=== PATIENT | female | born 1980 | race Caucasian/White ===

== ENCOUNTER → 2018-11-17 10:01 | Outpatient (CLI) | payer BC, SELFPAY ==
[2018-11-17 09:37] VITALS: BMI 22.1
[2018-11-17 10:19] LABS: Absolute Lymphocyte Count 1.68 X10^3/ul (0.83-4.51); Absolute Neutrophil Count 6.2 X10^3/uL (2.0-7.7); Basophil# 0.01 X10^3/uL; Basophil% 0.1 % (0-1); Eosinophil# 0.11 X10^3/uL; Eosinophils% 1.3 % (0-5); Hematocrit 37.1 % (37-47); Hemoglobin 12.8 g/dl (12.0-15.0); Lymphocyte # 1.68 X10^3/ul (4.0); Lymphocyte % 20.1 % (19-41); Mean Corp Hgb Conc 34.5 g/gl (32-36); Mean Corpuscular Hgb 31.2 pg (27.0-32.0); Mean Corpuscular Volume 90.5 fL (81-99); Mean Platelet Vol. 8.1 fl (6.2-12.0); Monocyte# 0.33 X10^3/uL; Monocyte% 3.9 % (0-10); Neutrophil # 6.22 X10^3/uL (2.7-7.7); Neutrophil % 74.4 % (47-70); Platelet Count 202 K/mm3 (150-450); RBC Distribution Width SD 42.1 fl (35.1-43.9); White Blood Count 8.4 K/mm3 (4.4-11.0)
[2018-11-17 10:22] LABS: POSITIVE COUNT NO; POSITIVE DIFFERENTIAL NO; POSITIVE MORPHOLOGY NO
[2018-11-17 11:48] LABS: HIV - WCH Non-Reactive (Nonreactive); Rubella IgG 63.4 IU/mL
[2018-11-17 17:27] LABS: Chlamydia Trachomatis by PCR Negative (Negative); Neisserai gonorrhoeae by PCR Negative (Negative); Probe Check PASS; Sample Adequacy Control PASS; Specimen Processing Control PASS
[2018-11-18 11:20] LABS: HEPATITIS B SURFACE AG Negative (Negative)
[2018-11-20 02:31] LABS: Rapid Plasmin Reagin (RPR) NONREACTIVE (NONREACTIVE)
== END ==
PROVIDERS: Family Provider Family Medicine; PCP Family Medicine; Referring Provider Obstetrics & Gynecology; Visit Provider Obstetrics & Gynecology
DX: O09.90 Supervision of high risk pregnancy, unspecified, unspecified trimester (principal); Z3A.00 Weeks of gestation of pregnancy not specified
CPT/HCPCS: 36415; 85025; 86592; 86703; 86762; 86850; 86900; 87086; 87088; 87340; 87491; 87591

== ENCOUNTER → 2019-03-18 10:34 | Outpatient (CLI) | payer BC, SELFPAY ==
[2019-03-18 10:16] VITALS: BMI 22.1
[2019-03-18 11:28] LABS: Glucose Challenge Gest 1H 50g 140 mg/dL (70-140)
[2019-03-18 11:34] LABS: Absolute Lymphocyte Count 1.42 X10^3/uL (0.83-4.51); Absolute Neutrophil Count 7.9 X10^3/uL (2.0-7.7); Basophil# 0.03 X10^3/uL; Basophil% 0.3 % (0-1); Eosinophil# 0.28 X10^3/uL; Eosinophils% 2.7 % (0-5); Hemoglobin 10.9 g/dL (12.0-15.0); Lymphocyte # 1.42 X10^3/ul (4.0); Lymphocyte % 13.6 % (19-41); Mean Corpuscular Hgb 31.2 pg (27.0-32.0); Mean Corpuscular Volume 94.6 fL (81-99); Mean Platelet Vol. 8.4 fl (6.2-12.0); Monocyte# 0.61 X10^3/uL; Monocyte% 5.8 % (0-10); NRBC Flagged by Analyzer 0 % (0-5); Neutrophil # 7.94 X10^3/uL (2.7-7.7); Neutrophil % 76.2 % (47-70); Platelet Count 146 K/mm3 (150-450); RBC Distribution Width CV 13.2 % (11.6-14.6); RBC Distribution Width SD 45.4 fl (35.1-43.9); Red Blood Count 3.49 M/mm3 (4.2-5.4); White Blood Count 10.4 K/mm3 (4.4-11.0)
== END ==
PROVIDERS: Family Provider Family Medicine; PCP Family Medicine; Referring Provider Nurse Practitioner Women's Health; Visit Provider Nurse Practitioner Women's Health
DX: O09.90 Supervision of high risk pregnancy, unspecified, unspecified trimester (principal); Z3A.00 Weeks of gestation of pregnancy not specified
CPT/HCPCS: 36415; 82950; 85025

== ENCOUNTER → 2019-03-25 06:49 | Outpatient (CLI) | payer BC, SELFPAY ==
[2019-03-18 10:16] VITALS: BMI 22.1
[2019-03-25 07:29] LABS: Glucose GTT-Gestation. Fasting 84 mg/dL (<105)
[2019-03-25 08:35] LABS: Glucose GTT-Gestational 1 Hr 201 mg/dL (<190)
[2019-03-25 09:52] LABS: Glucose GTT-Gestational 2 Hr 154 mg/dL (<165)
[2019-03-25 11:02] LABS: Glucose GTT-Gestational 3 Hr 102 L (<145)
== END ==
PROVIDERS: Family Provider Family Medicine; PCP Family Medicine; Referring Provider Nurse Practitioner Women's Health; Visit Provider Nurse Practitioner Women's Health
DX: O99.810 Abnormal glucose complicating pregnancy (principal); Z3A.00 Weeks of gestation of pregnancy not specified
CPT/HCPCS: 36415; 82951; 82952

== ENCOUNTER → 2019-04-28 11:01 | Outpatient (CLI) | payer BC, SELFPAY ==
[2019-04-19 08:04] VITALS: BMI 22.1
[2019-04-28 09:42] VITALS: BMI 22.1
--- NOTE | 2019-04-28 11:02 | US_ITS ---
STUDY: SECOND AND THIRD TRIMESTER OBSTETRICAL ULTRASOUND REASON FOR EXAM: Female, 38 years old LMP: TECHNIQUE: TECHNICAL QUALITY: Adequate. PRIOR ULTRASOUND: None. FINDINGS: There is a single intrauterine fetus. The fetus is in transverse lie with the head to the right. There is demonstrated cardiac activity with a heart rate of 131 bpm. There is a normal amniotic fluid volume. The largest amniotic fluid pocket measures cm. The amniotic fluid index (REBECCA) is 10.6 cm. The placenta is bilobed anterior and fundal in location There are Grade 0 placental changes. The cervix measures 6 cm in length. The bilateral adnexal regions are normal. BIOMETRY: BPD: 8.4 cm: 33weeks, 4 days HC: 15.9 cm: 34 weeks, 3 days AC: 30.7 cm: 34 weeks, 4 days FL: 6.2 cm: 32 weeks, 1 days CI: 80% FL/BPD: 74% FL/HC: FL/AC: 20% HC/AC: 1.01 age by current US: 33 weeks, 4 days. GARY by current US: 06/13/2019. Estimated weight: 2288 grams, +/- 339 grams, 67 %. age by prior US: weeks, days. GARY by prior US: . Age by LMP: 32 weeks, 6 days. GARY by LMP: 06/17/2019. ANATOMY: Gender: Cranium: Normal lateral ventricles. Normal choroid plexus. Normal cerebellum. Normal cisterna magna. Normal face, nose and lips. Chest: Normal 4-chamber heart. Abdomen/Pelvis: Normal diaphragm. Normal stomach. Normal abdominal wall. Normal cord insertion. Normal 3 vessel cord. Normal kidneys. Normal bladder. Spine: Normal cervical spine. Normal thoracic spine. Normal lumbar spine. Normal sacrum. Extremities: Normal bilateral upper extremities. Normal bilateral lower extremities. US/OB Limited With Biometrics IMPRESSION: Within normal limits intrauterine live . Corresponds to 33 weeks and 3 days. Electronically Signed: Bora Sanchez, at 8:51 EST Tel , Service support ,
== END ==
PROVIDERS: Family Provider Family Medicine; PCP Family Medicine; Referring Provider Obstetrics & Gynecology; Visit Provider Obstetrics & Gynecology
DX: O24.419 Gestational diabetes mellitus in pregnancy, unspecified control (principal); Z3A.33 33 weeks gestation of pregnancy
CPT/HCPCS: 76816

== ENCOUNTER → 2019-05-20 13:19 | Outpatient (CLI) | payer BC, SELFPAY ==
[2019-05-20 08:11] VITALS: BMI 29.0
== END ==
PROVIDERS: Family Provider Family Medicine; PCP Family Medicine; Referring Provider Obstetrics & Gynecology; Visit Provider Obstetrics & Gynecology
DX: Z36.85 Encounter for antenatal screening for Streptococcus B (principal)
CPT/HCPCS: 87077; 87081; 87186

== ENCOUNTER → 2019-05-28 14:02 | Outpatient (CLI) | payer BC, SELFPAY ==
[2019-05-20 08:11] VITALS: BMI 29.0
[2019-05-28 10:47] VITALS: BMI 29.0
--- NOTE | 2019-05-28 14:02 | US_ITS ---
STUDY: SECOND AND THIRD TRIMESTER OBSTETRICAL ULTRASOUND REASON FOR EXAM: Female, 38 years old gestational diabetes. growth. LMP: September 10, 2018. TECHNIQUE: Transabdominal TECHNICAL QUALITY: Adequate. PRIOR ULTRASOUND: None. FINDINGS: There is a single intrauterine fetus. The fetus is in a cephalic presentation. There is demonstrated cardiac activity with a heart rate of 144 bpm. There is a normal amniotic fluid volume. The largest amniotic fluid pocket measures 4.44 cm. The amniotic fluid index (REBECCA) is 14.13 cm. The placenta is anterior and fundal and lower lung There are Grade 2 placental changes. The cervix measures 5.65 cm in length. The adnexal regions are not visualized. BIOMETRY: BPD: 9.07 cm: 36 weeks, 6 days HC: 32.6 cm: 37 weeks, 0 days AC: 33.4 cm: 37 weeks, 5 days FL: 7.25 cm: 37 weeks, 1 days CI: FL/BPD: 80 FL/HC: FL/AC: 21 HC/AC: 0.97 age by current US: 37 weeks, 2 days. GARY by current US: June 16, 2019. Estimated weight: 3183 grams, +/- 465 grams, 62 %. age by prior US: 37 weeks, 5 days. GARY by prior US: June 13, 2019. Age by LMP: 37 weeks, 1 days. GARY by LMP: June 17, 2019. US/OB Limited With Biometrics IMPRESSION: 1. Live single intrauterine of 37 weeks, 2 days. GARY is June 16, 2019. There is adequate interval growth since prior ultrasound. 2. EFW of 3183 g. 3. REBECCA of 14.33 cm. 4. Anterior and fundal grade 2 placenta. 5. Vertex presentation. Electronically Signed: Rasta Hou DO at 16:06 EST Tel [phone], Service support ,
--- NOTE | 2019-05-28 14:02 | US_ITS ---
STUDY: OBSTETRICAL ULTRASOUND - BIOPHYSICAL PROFILE REASON FOR EXAM: Female, 38 years old GDM- well being LMP: 09/10/2018. PRIOR ULTRASOUND: None. TECHNIQUE: Transabdominal TECHNICAL QUALITY: Adequate. FINDINGS: There is a single intrauterine fetus. The fetus is in a cephalic presentation. There is demonstrated cardiac activity with a heart rate of 129 bpm. There is a normal amniotic fluid volume. The largest amniotic fluid pocket measures 5.03 cm. The amniotic fluid index (REBECCA) is 14.2 cm. The placenta is There are Grade 2 placental changes. Age by LMP: 37 weeks, 1 days. GARY by LMP: 06/17/2019. age by prior US: 37 weeks, 5 days. GARY by prior US: 06/13/2019. BIOPHYSICAL PROFILE: Breathing Movements (FBM): 2 Gross Body Movements (GBM): 2 Tone (FT): 2 Amniotic Fluid Volume (AFV): 2 TOTAL SCORE: / US/Biophysical Profile IMPRESSION: Normal biophysical profile of 01/07. Electronically Signed: Edilia Rodrigues MD at 4:00 EST , Service support ,
== END ==
PROVIDERS: Family Provider Family Medicine; PCP Family Medicine; Referring Provider Obstetrics & Gynecology; Visit Provider Obstetrics & Gynecology
DX: O24.419 Gestational diabetes mellitus in pregnancy, unspecified control (principal); O09.90 Supervision of high risk pregnancy, unspecified, unspecified trimester; Z3A.00 Weeks of gestation of pregnancy not specified
CPT/HCPCS: 76816; 76818

== ENCOUNTER 2019-06-09 18:30 | Outpatient (CLI) | payer OTHER, SELFPAY ==
[2019-06-04 08:58] VITALS: BMI 29.0
[2019-06-09 19:02] VITALS: BMI 30.4
--- NOTE | 2019-06-10 09:42 | OB.TRI.PN ---
Progress Notes Date of Service: 06/09/19 Progress Note: FHT: 140 Moderate variability reactive no decelerations category I tracing Candelaria Arenas: no regular Contractions pelvic pressure - Problem List (1) Pelvic pressure in Status: Acute Multi Select Codes - Urinary/Genital Urinary/Genital CPT Codes: 23709-83 non-stress test Interp
== END 2019-06-09 19:10 | disposition home or self-care (01) ==
LOC: WPOUT 18:44 → WP 18:45
PROVIDERS: Family Provider Family Medicine; PCP Family Medicine; Referring Provider Obstetrics & Gynecology; Visit Provider Obstetrics & Gynecology
DX: O26.899 Other specified pregnancy related conditions, unspecified trimester (principal); R10.2 Pelvic and perineal pain; Z3A.00 Weeks of gestation of pregnancy not specified
CPT/HCPCS: 59025; 59050; 99218; G0378

== ENCOUNTER 2019-06-17 07:10 | Inpatient (IN) | payer OTHER, SELFPAY ==
[2019-06-11 08:18] VITALS: BMI 30.4
[2019-06-17 07:24] VITALS: BMI 30.2
[2019-06-17] MEDS: Lactated Ringers 1,000 ML 50 ML IV (07:30)
[2019-06-17 07:45] LABS: Bedside Glucose 78 mg/dL (70-110)
[2019-06-17 07:48] LABS: Absolute Lymphocyte Count 1.58 X10^3/uL (0.83-4.51); Absolute Neutrophil Count 4.9 X10^3/uL (2.0-7.7); Basophil# 0.02 X10^3/uL; Basophil% 0.3 % (0-1); Eosinophils% 2.8 % (0-5); Hematocrit 33.7 % (37-47); Hemoglobin 11.4 g/dL (12.0-15.0); Lymphocyte # 1.58 X10^3/ul (4.0); Lymphocyte % 21.7 % (19-41); Mean Corp Hgb Conc 33.8 g/dL (32-36); Mean Corpuscular Hgb 30.6 pg (27.0-32.0); Mean Corpuscular Volume 90.6 fL (81-99); Mean Platelet Vol. 9.3 fl (6.2-12.0); Monocyte# 0.55 X10^3/uL; Monocyte% 7.6 % (0-10); NRBC Flagged by Analyzer 0 % (0-5); Neutrophil # 4.87 X10^3/uL (2.7-7.7); Neutrophil % 66.9 % (47-70); Platelet Count 123 K/mm3 (150-450); RBC Distribution Width CV 14.1 % (11.6-14.6); RBC Distribution Width SD 46.5 fl (35.1-43.9); Red Blood Count 3.72 M/mm3 (4.2-5.4); White Blood Count 7.3 K/mm3 (4.4-11.0)
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
[2019-06-17] MEDS: Oxytocin 30 units/NS 500 ml 30 UNITS/500 ML IV.SOLN IV (08:49)
[2019-06-17 08:56] LABS: Bedside Glucose 75 mg/dL (70-110)
--- NOTE | 2019-06-17 10:16 | PCM.RX.CS ---
Consult Pharmacy has been consulted to manage selected antiobiotic: Vancomycin Type of Consult: New start Suspected Infection: Other Prior Doses of Antibiotics Received/Current Regimen: ZERO Labs: TROUGH ORDERED PRIOR TO 4TH DOSE IF PATIENT STILL RECEIVING VANCO Weight used for dosin kg Estimated Creatinine Clearance: NA Goal Trough: Other Pharmacy Plan for Drug Dosing: Pharmacy Service will continue to monitor and adjust dosing as required. 20MG/KG Q12H UNTIL DELIVERY Follow-Up Labs: Trough Vancomycin - ORDERED FOR 30MIN PRIOR TO 4TH DOSE Labs to be done on [date and time ordered]: 06/18/2019 AT 2200
[2019-06-17 12:55] LABS: Bedside Glucose 75 mg/dL (70-110)
[2019-06-17] MEDS: Lactated Ringers 500 ML 999 ML IV (14:13)
[2019-06-17] MEDS: fentaNYL-bupivacaine (epidural) 100 ML BAG EPIDURAL (14:36)
[2019-06-17 15:01] LABS: Bedside Glucose 85 mg/dL (70-110)
[2019-06-17] MEDS: Oxytocin 30 units/NS 500 ml 30 UNITS/500 ML IV.SOLN 334 UNITS IV (15:25)
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
[2019-06-17 15:46] LABS: Bedside Glucose 91 mg/dL (70-110)
[2019-06-17 19:50] VITALS: BP 114/63; PULSE 76; RESP 16; TEMP 36.6
[2019-06-17 23:37] VITALS: BP 120/69; PULSE 84; RESP 16; TEMP 37.1
[2019-06-18 03:35] VITALS: BP 122/83; PULSE 80; RESP 16; TEMP 36.4
[2019-06-18 06:35] LABS: Bedside Glucose 67 mg/dL (70-110)
--- NOTE | 2019-06-18 06:39 | NURSING ---
mothers fasting blood glucose 67, denies symptoms, given juice, will reassess
--- NOTE | 2019-06-18 06:58 | NURSING ---
follow up blood sugar 75
[2019-06-18 07:00] LABS: Bedside Glucose 75 mg/dL (70-110)
[2019-06-18 08:00] VITALS: BP 108/59; PULSE 84; RESP 20; TEMP 36.5; O2SAT 98
[2019-06-18] MEDS: Senna/Docusate Sodium 1 Tablet PO (09:39)
[2019-06-18] MEDS: Prenatal Vits Tablet 1 TABLET PO (11:58)
[2019-06-18 12:00] VITALS: BP 122/73; PULSE 85; TEMP 36.5; O2SAT 97
[2019-06-18 16:00] VITALS: BP 123/73; PULSE 86; TEMP 36.2; O2SAT 95
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
[2019-06-18 20:29] VITALS: BP 124/82; PULSE 72; RESP 16; TEMP 36.6
[2019-06-19 01:28] VITALS: BP 130/72; PULSE 78; RESP 16; TEMP 36.4
[2019-06-19 10:00] VITALS: BP 131/62; PULSE 81; RESP 12; TEMP 36.5
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
--- NOTE | 2019-06-19 10:01 | DCINST_ITS ---
Discharge Diet: No Restrictions Discharge Activity: Return to Normal Activity, May not drive while taking narcotic pain medications., May Shower May resume sexual activity in: 4-6 weeks Call your doctor if your incision/area has: Continuous Slow Oozing, Sudden Increased Bleeding, Increased Pain/ Swelling, Increased Redness, Foul Smelling Discharge Additional Instructions: If you experience any of the following, contact your healthcare provider. * Bleeding that soaks a pad every hour for 2 hours * Fever 100.4 or higher * Unrelieved incision or abdominal pain * Swelling, redness, discharge or bleeding from your incision or episiotomy site * Your incision begins to separate * Problems urinating (including inability to urinate or burning while urinating). * Visual changes * Severe headache * Flu-like symptoms * Pain or redness in one of both of your breasts * Pain, warmth, tenderness or swelling in your legs, especially the calf area * Frequent nausea and vomiting * Symptoms of depression or anxiety If you experience any of the following, call 911 or go to the nearest Emergency Room. * Chest pain * Problems breathing * Seizure activity * Partial or complete paralysis of a body part, slurred speech, weakness or drooping of the face, or a sudden inability to walk or hold your balance Allergies/Adverse Reactions: Allergies Penicillins [PCN] Allergy (Verified 06/17/19 07:25) Rash Medications to take at Discharge Albuterol IH (ProAir) [Proair Hfa (SP)Vent Pts] 2 puff INHALATION Q4H PRN PRN 03/04/17 prenat.vits,maximino,[id number] 1 tab PO DAILY 12/17/18 Blood-Glucose Meter [Contour] See Rx Instructions .ROUTE .MEDSUPPLY 06/17/19 Please Follow Up With: Laura Suggs MD - [phone] When: Call to make an appointment with your doctor in 6 weeks. If you had elevated Blood pressure or 4th degree laceration you will need to be seen in 2 weeks. Primary Care Physician: Dat Kelley MD [Primary Care Provider] - Test Results: Test results from this visit will be discussed in further detail at your follow- up appointment, if applicable.
--- NOTE | 2019-06-19 10:01 | PCM.DCVAG ---
Discharge Diet: No Restrictions Discharge Activity: Return to Normal Activity, May not drive while taking narcotic pain medications., May Shower May resume sexual activity in: 4-6 weeks Call your doctor if your incision/area has: Continuous Slow Oozing, Sudden Increased Bleeding, Increased Pain/ Swelling, Increased Redness, Foul Smelling Discharge Additional Instructions: If you experience any of the following, contact your healthcare provider. Bleeding that soaks a pad every hour for 2 hours Fever 100.4 or higher Unrelieved incision or abdominal pain Swelling, redness, discharge or bleeding from your incision or episiotomy site Your incision begins to separate Problems urinating (including inability to urinate or burning while urinating). Visual changes Severe headache Flu-like symptoms Pain or redness in one of both of your breasts Pain, warmth, tenderness or swelling in your legs, especially the calf area Frequent nausea and vomiting Symptoms of depression or anxiety If you experience any of the following, call 911 or go to the nearest Emergency Room. Chest pain Problems breathing Seizure activity Partial or complete paralysis of a body part, slurred speech, weakness or drooping of the face, or a sudden inability to walk or hold your balance Allergies/Adverse Reactions: Allergies Penicillins [PCN] Allergy (Verified 06/17/19 07:25) Rash Medications to take at Discharge Albuterol IH (ProAir) [Proair Hfa (SP)Vent Pts] 2 puff INHALATION Q4H PRN PRN 03/04/17 prenat.vits,maximino,[id number] 1 tab PO DAILY 12/17/18 Blood-Glucose Meter [Contour] See Rx Instructions .ROUTE .MEDSUPPLY 06/17/19 Please Follow Up With: Laura Suggs MD - [phone] When: Call to make an appointment with your doctor in 6 weeks. If you had elevated Blood pressure or 4th degree laceration you will need to be seen in 2 weeks. Primary Care Physician: Dat Kelley MD [Primary Care Provider] - Test Results: Test results from this visit will be discussed in further detail at your follow-up appointment, if applicable.
--- NOTE | 2019-06-19 11:40 | NURSING ---
1045 Pt states that she wants to go home today. States she is able to care for herself and her baby. Discharged to car in wheelchair with baby in lap.
== END 2019-06-19 10:45 | disposition home or self-care (01) | DRG 806 ==
PROVIDERS: Admitting Provider Obstetrics & Gynecology; PCP Family Medicine; Referring Provider Obstetrics & Gynecology; Visit Provider Obstetrics & Gynecology
DX: O24.420 Gestational diabetes mellitus in childbirth, diet controlled (principal); O98.82 Other maternal infectious and parasitic diseases complicating childbirth; Z37.0 Single live birth; B95.1 Streptococcus, group B, as the cause of diseases classified elsewhere; O99.02 Anemia complicating childbirth; D64.9 Anemia, unspecified; O70.0 First degree perineal laceration during delivery; O48.0 Post-term pregnancy; Z3A.40 40 weeks gestation of pregnancy
CPT/HCPCS: 59025; 59050; 82962; 85025; 86850; 86900; 86901; 99218; J7040; J7120; G0378

== ENCOUNTER → 2019-07-29 15:24 | Outpatient (CLI) | payer OTHER, SELFPAY ==
[2019-07-29 10:59] VITALS: BMI 30.2
[2019-08-03 18:34] LABS: HPV APTIMA, High Risk Negative (Negative)
== END ==
PROVIDERS: PCP Family Medicine; Referring Provider Nurse Practitioner Women's Health; Visit Provider Nurse Practitioner Women's Health
DX: Z12.4 Encounter for screening for malignant neoplasm of cervix (principal)
CPT/HCPCS: 87624; 88175; G0145

== ENCOUNTER → 2021-01-18 16:05 | Outpatient (CLI) | payer OTHER, SELFPAY ==
[2021-01-18 16:41] LABS: Absolute Lymphocyte Count 1.81 X10^3/uL (0.83-4.51); Absolute Neutrophil Count 7.6 X10^3/uL (2.0-7.7); Basophil# 0.02 X10^3/uL; Basophil% 0.2 % (0-1); Eosinophil# 0.34 X10^3/uL; Eosinophils% 3.3 % (0-5); Hematocrit 33.7 % (37-47); Hemoglobin 11.9 g/dL (12.0-15.0); Lymphocyte # 1.81 X10^3/ul (0.83-4.51); Lymphocyte % 17.7 % (19-41); Mean Corp Hgb Conc 35.3 g/dL (32-36); Mean Corpuscular Hgb 31.9 pg (27.0-32.0); Mean Corpuscular Volume 90.3 fL (81-99); Mean Platelet Vol. 8.4 fl (6.2-12.0); Monocyte# 0.44 X10^3/uL; Monocyte% 4.3 % (0-10); NRBC Flagged by Analyzer 0 % (0-5); Neutrophil # 7.61 X10^3/uL (2.7-7.7); Neutrophil % 74.2 % (47-70); Platelet Count 208 K/mm3 (150-450); RBC Distribution Width CV 12.7 % (11.6-14.6); RBC Distribution Width SD 41.7 fl (35.1-43.9); Red Blood Count 3.73 M/mm3 (4.2-5.4); White Blood Count 10.3 K/mm3 (4.4-11.0)
[2021-01-18 17:09] LABS: AST(SGOT) 9 U/L (15-37); Alanine Aminotransfer ALT/SGPT 17 U/L (13-56); Albumin, Serum 3.6 g/dL (3.2-5.0); Alkaline Phosphatase 50 U/L (45-117); Anion Gap 9 (5-15); BUN 12 mg/dL (7-18); BUN/Creat Ratio 22.2 RATIO (10-20); Calcium,Total 9.1 mg/dL (8.5-10.1); Chloride 101 mmol/L (98-107); Creatinine, Serum 0.54 mg/dL (0.55-1.02); EST Glomerular Filtration Rate 134 mL/min (>60); Est Glom Filt Rate - Afr Amer 162 mL/min (>60); Globulin 3.6 g/dL (2.2-4.2); Glucose 193 mg/dL (74-106); Glucose Challenge Gest 1H 50g 193 mg/dL (70-140); Potassium 3.5 mmol/L (3.5-5.1); Protein, Total 7.2 g/dL (6.4-8.2); Sodium Level 133 mmol/L (136-145)
[2021-01-18 17:35] LABS: Amphetamine Urine VISTA NEGATIVE (<1000 ng/mL); Barbiturate Urine VISTA NEGATIVE (< 200 ng/mL); Benzodiazepine Urine VISTA NEGATIVE (< 200 ng/mL); Cocaine Urine VISTA NEGATIVE (< 300 ng/mL); Ecstacy Urine VISTA NEGATIVE (< 500 ng/mL); Methadone Urine VISTA NEGATIVE (< 300 ng/mL); PCP Urine VISTA NEGATIVE (< 25 ng/mL); THC Urine VISTA NEGATIVE (< 50 ng/mL); Vista UDS pH Range 6
[2021-01-18 17:42] LABS: Protein, Urine (Random) < 6.0 mg/dL (<11.9)
[2021-01-19 10:40] LABS: HIV - WCH Non-Reactive (Nonreactive); Hepatitis B Surface Antigen Non-Reactive (Nonreactive); Hepatitis C Antibody Non-Reactive (Nonreactive); Rubella IgG Reactive (Nonreactive); Syphilis Antibodies Non-reactive
== END ==
PROVIDERS: PCP Family Medicine; Visit Provider Obstetrics & Gynecology
DX: O09.90 Supervision of high risk pregnancy, unspecified, unspecified trimester (principal); Z3A.00 Weeks of gestation of pregnancy not specified; Z86.32 Personal history of gestational diabetes; Z87.59 Personal history of other complications of pregnancy, childbirth and the puerperium
CPT/HCPCS: 36415; 80053; 80307; 82570; 82950; 84156; 85025; 86703; 86762; 86780; 86803; 86850; 86900; 86901; 87086; 87088; 87340

== ENCOUNTER → 2021-02-01 06:58 | Outpatient (CLI) | payer OTHER, SELFPAY ==
[2021-02-01 07:48] LABS: Glucose GTT-Gestation. Fasting 94 mg/dL (<105)
[2021-02-01 08:41] LABS: Glucose GTT-Gestational 1 Hr 210 mg/dL (<190)
[2021-02-01 10:13] LABS: Glucose GTT-Gestational 2 Hr 150 mg/dL (<165)
[2021-02-01 11:25] LABS: Glucose GTT-Gestational 3 Hr 57 L (<145)
== END ==
PROVIDERS: PCP Family Medicine; Referring Provider Obstetrics & Gynecology; Visit Provider Obstetrics & Gynecology
DX: Z13.1 Encounter for screening for diabetes mellitus (principal)
CPT/HCPCS: 36415; 82951; 82952

== ENCOUNTER → 2021-02-13 11:55 | Outpatient (CLI) | payer OTHER, SELFPAY ==
[2021-02-13 14:27] LABS: Chlamydia Trachomatis by PCR Negative (Negative); Neisserai gonorrhoeae by PCR Negative (Negative); Probe Check PASS; Sample Adequacy Control PASS; Specimen Processing Control PASS
== END ==
PROVIDERS: PCP Family Medicine; Visit Provider Obstetrics & Gynecology
DX: O09.90 Supervision of high risk pregnancy, unspecified, unspecified trimester (principal); Z3A.00 Weeks of gestation of pregnancy not specified
CPT/HCPCS: 87491; 87591

== ENCOUNTER → 2021-05-21 09:10 | Outpatient (CLI) | payer OTHER, SELFPAY ==
[2021-05-21 10:16] LABS: Absolute Lymphocyte Count 1.31 X10^3/uL (0.83-4.51); Absolute Neutrophil Count 5.6 X10^3/uL (2.0-7.7); Basophil# 0.03 X10^3/uL; Basophil% 0.4 % (0-1); Eosinophil# 0.23 X10^3/uL; Hematocrit 32.5 % (37-47); Hemoglobin 10.8 g/dL (12.0-15.0); Lymphocyte # 1.31 X10^3/ul (0.83-4.51); Lymphocyte % 17.1 % (19-41); Mean Corp Hgb Conc 33.2 g/dL (32-36); Mean Corpuscular Hgb 31.5 pg (27.0-32.0); Mean Corpuscular Volume 94.8 fL (81-99); Mean Platelet Vol. 8.5 fl (6.2-12.0); Monocyte# 0.45 X10^3/uL; Monocyte% 5.9 % (0-10); NRBC Flagged by Analyzer 0 % (0-5); Neutrophil # 5.58 X10^3/uL (2.7-7.7); Neutrophil % 72.9 % (47-70); Platelet Count 167 K/mm3 (150-450); RBC Distribution Width CV 13.2 % (11.6-14.6); Red Blood Count 3.43 M/mm3 (4.2-5.4); White Blood Count 7.7 K/mm3 (4.4-11.0)
[2021-05-21 10:32] LABS: Hemoglobin A1c 5.1 % (3.8-5.6)
== END ==
PROVIDERS: Obstetrics & Gynecology; PCP Family Medicine; Visit Provider Obstetrics & Gynecology
DX: O09.90 Supervision of high risk pregnancy, unspecified, unspecified trimester (principal); O24.319 Unspecified pre-existing diabetes mellitus in pregnancy, unspecified trimester; Z3A.00 Weeks of gestation of pregnancy not specified
CPT/HCPCS: 36415; 83036; 84443; 85025

== ENCOUNTER 2021-06-19 09:29 | Outpatient (CLI) | payer OTHER, SELFPAY ==
--- NOTE | 2021-06-19 09:39 | US_ITS ---
STUDY: SECOND AND THIRD TRIMESTER OBSTETRICAL ULTRASOUND - LIMITED REASON FOR EXAM: Female, 40 years old . growth. Gestational diabetes. LMP: 11/07/2020. PRIOR ULTRASOUND: None. TECHNIQUE: Transabdominal TECHNICAL QUALITY: Adequate. FINDINGS: There is a single intrauterine fetus. The fetus is in a transverse lie with the head on the maternal right side. There is demonstrated cardiac activity with a heart rate of 160 bpm. There is a normal amniotic fluid volume. The largest amniotic fluid pocket measures 5.48 cm. The amniotic fluid index (REBECCA) is 16.3 cm. The placenta is anterior in location and is not low lying. There are Grade 1 placental changes. The cervix measures 5.7 cm in length. BIOMETRY: BPD: 8.19 cm: 32 weeks, 6 days HC: 30.08 cm: 33 weeks, 2 days AC: 30 cm: 33 weeks, 6 days FL: 6.53 cm: 33 weeks, 4 days Age by LMP: 32 weeks, 0 days. GARY by LMP: 08/14/2021. age by current US: 32 weeks, 0 days. GARY by current US: 08/14/2021. Estimated weight: 2284 grams, +/- 343 grams, 90 percentile. US/OB Limited With Biometrics IMPRESSION: Single live intrauterine gestation with a mean gestational age of 32 weeks. Electronically Signed: Johnny Madera MD at 12:36 EST , Service support ,
== END 2021-06-19 23:59 | disposition short-term general hospital (02) ==
PROVIDERS: PCP Family Medicine; Referring Provider Nurse Practitioner Women's Health; Visit Provider Nurse Practitioner Women's Health
DX: O44.42 Low lying placenta NOS or without hemorrhage, second trimester (principal); Z3A.00 Weeks of gestation of pregnancy not specified
CPT/HCPCS: 76816

== ENCOUNTER 2021-07-17 12:26 | Outpatient (CLI) | payer OTHER, SELFPAY ==
--- NOTE | 2021-07-17 12:28 | US_ITS ---
STUDY: SECOND AND THIRD TRIMESTER OBSTETRICAL ULTRASOUND REASON FOR EXAM: Female, 40 years old growth , GDM, hx of placental previa which has resolved LMP: 11/07/2020. TECHNIQUE: Transabdominal TECHNICAL QUALITY: Adequate. PRIOR ULTRASOUND: None. FINDINGS: There is a single intrauterine fetus. The fetus is in a cephalic presentation. There is demonstrated cardiac activity with a heart rate of 132 bpm. There is a normal amniotic fluid volume. The largest amniotic fluid pocket measures 7.1 cm x 2.6 cm. The amniotic fluid index (REBECCA) is 20.4 cm. The placenta is posterior and fundal in location and is not low lying. There are Grade 1 placental changes. The cervix was not measured due to the head positioning. The adnexal regions are not visualized. BIOMETRY: BPD: 8.9 cm: 35 weeks, 6 days HC: 32.32 cm: 36 weeks, 3 days AC: 36.76 cm: 40 weeks, 4 days FL: 7.38 cm: 37 weeks, 5 days CI: 80% FL/BPD: 83% FL/HC: FL/AC: 20% HC/AC: 0.88 age by current US: 37 weeks, 1 days. GARY by current US: 08/06/2021. Estimated weight: 3729 grams, +/- 559 grams, 99 %. age by prior US: 37 weeks, 2 days. GARY by prior US: 08/05/2021. Age by LMP: 37 weeks, 0 days. GARY by LMP: 08/14/2021. US/OB Limited With Biometrics IMPRESSION: Single live intrauterine gestation with mean gestational age of 37 weeks and 2 days. The measurements obtained today fall within the normal expected range. Electronically Signed: Johnny Madera MD at 10:12 EST ,
== END 2021-07-17 23:59 | disposition home or self-care (01) ==
PROVIDERS: PCP Family Medicine; Referring Provider Nurse Practitioner Women's Health; Visit Provider Nurse Practitioner Women's Health
DX: O44.42 Low lying placenta NOS or without hemorrhage, second trimester (principal)
CPT/HCPCS: 76816; 87081

== ENCOUNTER 2021-08-01 07:10 | Inpatient (IN) | payer OTHER, SELFPAY ==
[2021-08-01] VITALS (61 sets, daily range): BP systolic 118–141; BP diastolic 56–85; PULSE 69–226; RESP 16–18; TEMP 36.3–36.9; O2SAT 82–100; BMI 30.8
[2021-08-01] MEDS: Lactated Ringers 1,000 ML 50 ML IV (07:40)
[2021-08-01 07:54] LABS: Absolute Lymphocyte Count 2.35 X10^3/uL (0.83-4.51); Absolute Neutrophil Count 5.5 X10^3/uL (2.0-7.7); Basophil# 0.03 X10^3/uL; Basophil% 0.3 % (0-1); Eosinophil# 0.37 X10^3/uL; Eosinophils% 4.1 % (0-5); Hematocrit 33.3 % (37-47); Hemoglobin 11.5 g/dL (12.0-15.0); Lymphocyte # 2.35 X10^3/ul (0.83-4.51); Lymphocyte % 26.3 % (19-41); Mean Corp Hgb Conc 34.5 g/dL (32-36); Mean Corpuscular Hgb 30.8 pg (27.0-32.0); Mean Corpuscular Volume 89.3 fL (81-99); Mean Platelet Vol. 10.1 fl (6.2-12.0); Monocyte# 0.61 X10^3/uL; Monocyte% 6.8 % (0-10); NRBC Flagged by Analyzer 0 % (0-5); Neutrophil # 5.51 X10^3/uL (2.7-7.7); Neutrophil % 61.9 % (47-70); Platelet Count 155 K/mm3 (150-450); RBC Distribution Width CV 14.8 % (11.6-14.6); Red Blood Count 3.73 M/mm3 (4.2-5.4); White Blood Count 8.9 K/mm3 (4.4-11.0)
[2021-08-01] MEDS: Oxytocin 30 units/NS 500 ml 30 UNITS/500 ML IV.SOLN IV (08:15)
[2021-08-01 08:41] LABS: Bedside Glucose 95 mg/dL (70-110)
[2021-08-01 13:01] LABS: Bedside Glucose 67 mg/dL (74-106)
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
[2021-08-01 13:51] LABS: Bedside Glucose 99 mg/dL (74-106)
[2021-08-01] MEDS: Oxytocin 30 units/NS 500 ml 30 UNITS/500 ML IV.SOLN 334 UNITS IV (16:06)
[2021-08-01] MEDS: Acetaminophen 500 MG Tablet PO (16:35)
[2021-08-01 16:36] LABS: Bedside Glucose 101 mg/dL (74-106)
--- NOTE | 2021-08-01 17:05 | OP.PCM_ITS ---
Maternal Data Information GARY Calculator Estimated Delivery Date Method Current WG Current Estimate 08/14/21 LMP (Certain) 38w 1d Vaginal Delivery Operative Information Date of Procedure: 08/01/21 Pre-Operative Diagnosis: 38 weeks 0d , Insulin dependent gestational diabetic with poor control Post-Operative Diagnosis: 38 weeks 0d , Insulin dependent gestational michelle betic with poor control Type of Anesthesia: None and Epidural Drain: Zuniga to straight drain Estimated Blood Loss: 100cc Findings Description of Procedure: Patient began pushing and delivered the head in the CUBA presentation. The head was delivered atraumatically. The anterior and posterior shoulders delivered without complication followed by the rest of the infant and the was placed on the maternal abdomen. Delayed cord clamping was employed for approximately 60 seconds. Cord was clamped and cut and gentle traction was applied to the cord and the placenta delivered spontaneously immediately following it was noted to be intact with three-vessel cord. The perineum and vagina were inspected and noted to have no laceration. EBL was 100 cc. Patient and tolerated delivery well. Presentation: Vertex Amniotic Membrane Rupture Type: Spontaneous Amniotic Fluid Description: Clear Placental Delivery Description: Spontaneous Placenta Disposition: [facility] Cord Vessel Description: 3 Vessels Cord Entanglement: None Infant A Gender: Female (1 minute): 8 (5 minute): 9 Delayed Cord Clamping: Yes Post Vaginal Delivery Medications Given After Delivery: IV Pitocin Episiotomy Description: None Laceration: None Complication Complications: None Multi Select Codes Urinary/Genital Urinary/Genital CPT Codes: 59612 Vaginal Delivery [facility]
--- NOTE | 2021-08-01 17:08 | PCM.DC ---
Discharge Instructions Diet Discharge Diet: No restrictions Activity Discharge Activity: Return to Normal Activity, May Not Drive (while taking narcotic pain medications.) and May Shower May resume sexual activity in: 4-6 weeks Dressing / Incision Call your doctor if your incision/area has: Continuous Slow Oozing, Sudden Increased Bleeding, Increased Pain/ Swelling, Increased Redness and Foul Smelling Discharge Follow Up Care Please Follow Up With: Peyton Tobar DO When: Call [phone] to make an appointment with your doctor in 6 weeks. If you had elevated blood pressure or 4th degree laceration, you will need to be seen in 2 weeks. Test Results: Test results from this visit will be discussed in further detail at your follow-up appointment, if applicable. Discharge Plan Admission Admit Date/Time: 08/01/21 07:10 Primary Reason for Your Visit: vagnial delivery Attending Provider: Peyton Tobar Primary Care Provider: Dat Kelley Discharge Orders/Prescriptions Prescriptions: New ibuprofen 600 mg tablet 600 mg PO Q6H 7 Days Qty: 28 RF: 0 Continued prenat.vits,maximino,ayz-ifrk-lrerz Tablet 1 tab PO DAILY RF: 0 Adult Probiotic 3 billion cell capsule 3,000 mmu cells PO DAILY RF: 0 albuterol sulfate 1 PUFF inhaler 2 puff inhalation Q4H PRN PRN (Reason: Bronchodialation) RF: 0 Discontinued aspirin 81 mg tablet,chewable 81 mg PO DAILY RF: 0 Humulin N NPH U-100 Insulin 100 unit/mL suspension 21 unit subcut QHS RF: 0 metformin 500 mg Tablet 500 mg PO DAILY RF: 0 No Action (DME) FreeStyle Laura 2 Sensor Kit See Rx Instructions .ROUTE .MEDSUPPLY Qty: 6 RF: 2 (DME) BD SafetyGlide Insulin Syringe 0.3 mL 31 gauge x 15/64 syringe See Rx Instructions .ROUTE .MEDSUPPLY Qty: 100 RF: 0 Referrals / Follow Up: Dat Kelley MD [Primary Care Provider] - Disposition Disposition (needs filled in before D/C Order can be placed): Home, Self Care
[2021-08-01] MEDS: Hydrocortisone 2.5% Crm 1 APPLIC TOPICAL (18:12)
[2021-08-01] MEDS: Dibucaine 30 GM Tube 1 APPLIC TOPICAL (18:12)
[2021-08-02 03:43] VITALS: BP 125/69; PULSE 90; RESP 16; TEMP 36.7; O2SAT 97
[2021-08-02 06:21] LABS: Bedside Glucose 81 mg/dL (74-106)
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
[2021-08-02 08:50] VITALS: BP 120/64; PULSE 90; RESP 16; TEMP 36.3; O2SAT 96
[2021-08-02] MEDS: Acetaminophen 500 MG Tablet 1000 MG PO (08:50)
[2021-08-02] MEDS: Prenatal Vits Tablet 1 TABLET PO (08:50)
[2021-08-02 12:48] VITALS: BP 123/66; PULSE 84; RESP 15; TEMP 36.6; O2SAT 98
[2021-08-02 17:50] VITALS: BP 131/71; PULSE 92; RESP 14; TEMP 37.1; O2SAT 97
--- NOTE | 2021-08-07 18:23 | NURSING ---
Following phone call attempted. No answer/ Left voicemail
== END 2021-08-02 18:15 | disposition home or self-care (01) | DRG 806 ==
PROVIDERS: Admitting Provider Obstetrics & Gynecology; PCP Family Medicine; Referring Provider Obstetrics & Gynecology; Visit Provider Obstetrics & Gynecology
DX: O24.424 Gestational diabetes mellitus in childbirth, insulin controlled (principal); Z37.0 Single live birth; O44.43 Low lying placenta NOS or without hemorrhage, third trimester; Z79.4 Long term (current) use of insulin; J45.20 Mild intermittent asthma, uncomplicated; O99.02 Anemia complicating childbirth; Z3A.38 38 weeks gestation of pregnancy; O99.52 Diseases of the respiratory system complicating childbirth; Z79.82 Long term (current) use of aspirin; Z79.899 Other long term (current) drug therapy
CPT/HCPCS: 59025; 59050; 82962; 85025; 86850; 86900; 86901; 87426; 99218; J7120; G0378